=== PATIENT | male | born 1930 | race Caucasian/White ===

== ENCOUNTER 2019-08-09 16:10 | Inpatient (IN) | payer MEDICARE ==
[~2019-08-09] VITALS: Ht 172.7 cm; Wt 75.4 kg
[~2019-08-09 16:10] MED LIST: ADVAIR 100/501 EA INH; ASPIRIN81 M3; CALCIUM; CHOLECALCIFEROL; FISH OIL QD; METFORMIN HCL500 M3; Z.0.MULTIVITAMINS1 E; Z.1.DIOVAN HCT 3201 PO; [UNRECOGNIZED DRUG - OTHER] PO
--- OUTSIDE RECORDS SUMMARY | 2019-08-09 16:13 | XMS REPORT ---
Author Author [facility] Address Unknown Phone Unavailable Care Team Providers Care Soft Mud Molder Name Role Phone Unavailable Unavailable Problems This patient has no known problems. Allergies, Adverse Reactions, Alerts This patient has no known allergies or adverse reactions. Medications This patient has no known medications.
[2019-08-09 17:41] LABS: BASOPHILS % 0.2 % (0.0-1.0); EOSINOPHILS # (AUTO) 0.3 (0.0-0.4); EOSINOPHILS % 3.6 % (0.0-6.0); HEMATOCRIT 41.1 % (38.2-49.6); HEMOGLOBIN 13.3 g/dL (14.0-18.0); LYMPHOCYTES # (AUTO) 1.4 (1.0-3.2); LYMPHOCYTES % 16.1 % (18.0-39.1); MEAN CORPUSCULAR HEMOGLOBIN 31.3 pg (28-32); MEAN CORPUSCULAR HGB CONC 32.4 g/dL (31-35); MEAN CORPUSCULAR VOLUME 96.7 fL (81-99); MONOCYTES # (AUTO) 0.7 (0.2-0.8); MONOCYTES % 7.8 % (4.4-11.3); NEUTROPHILS % 71.8 % (38.7-80.0); PLATELET COUNT 208 x10e3/uL (140-360); RED BLOOD COUNT 4.25 x10e6/uL (4.3-5.7); RED CELL DISTRIBUTION WIDTH 13.2 % (11.7-14.4)
[2019-08-09 18:07] LABS: ALANINE AMINOTRANSFERASE 17 IU/L (0-55); ALBUMIN 3.1 g/dL (3.5-5.0); ALKALINE PHOSPHATASE 131 IU/L (40-150); ANION GAP 10.8 mmol/L (8-16); BLOOD UREA NITROGEN 13 mg/dL (7-26); BUN/CREATININE RATIO 13 (6-25); CALCIUM 9.2 mg/dL (8.4-10.2); CARBON DIOXIDE 30 mmol/L (22-29); CHLORIDE 100 mmol/L (98-107); CREATINE KINASE 31 IU/L (30-200); CREATININE, SERUM 0.98 mg/dL (0.72-1.25); EST GLOMERULAR FILTRATION RATE > 60 ML/MIN (60-); GLUCOSE 164 mg/dL (74-118); POTASSIUM 3.8 mmol/L (3.5-5.1); SODIUM 137 mmol/L (136-145)
[2019-08-09 18:25] LABS: INR 0.96; PARTIAL THROMBOPLASTIN TIME 26.2 seconds (23.8-35.5); PROTHROMBIN TIME 13.3 seconds (11.9-14.5)
--- NOTE | 2019-08-09 18:48 | Diagnostic Imaging Report ---
EXAMINATION: CHEST 2 VIEWS INDICATION: ^sob ^[id number] ^[id number] COMPARISON: 04/21/2012 FINDINGS: TUBES and LINES: None. LUNGS: New 3.5 cm mass in the left upper lung. Chronic appearing changes in the lungs. There is no evidence of pneumonia or pulmonary edema. PLEURA: No pleural effusion or pneumothorax. HEART AND MEDIASTINUM: The cardiomediastinal silhouette is unremarkable. BONES AND SOFT TISSUES: No acute osseous lesion. Soft tissues are unremarkable. UPPER ABDOMEN: No free air under the diaphragm. IMPRESSION: New 3.5 cm mass in the left upper lung. This is worrisome for malignancy. CT scan of the chest is recommended. Signed by: Dr. Pk Guzamn M.D. on 08/09/2019 6:44 PM
[2019-08-09 20:12] LABS: BILIRUBIN,URINE NEGATIVE (NEGATIVE); CLARITY,URINE CLEAR (CLEAR); COLOR,URINE YELLOW (YELLOW); KETONES,URINE NEGATIVE (NEGATIVE); LEUKOCYTE ESTERASE ,URINE NEGATIVE (NEGATIVE); NITRITE,URINE NEGATIVE (NEGATIVE); PROTEIN,URINE DIPSTICK NEGATIVE (NEGATIVE); URINE UROBILINOGEN 0.2 mg/dL (0.2 - 1)
[2019-08-09 20:36] LABS: BACTERIA,URINE RARE /HPF; EPITHELIAL CELLS,URINE RARE /LPF
[2019-08-09] MEDS ORDERED: TRIAZOLAM0.25 MG PO (20:41)
[2019-08-09] MEDS ORDERED: METFORMIN HCL500 MG PO (20:41)
[2019-08-09] MEDS ORDERED: FINASTERIDE5 MG PO (20:41)
[2019-08-09] MEDS ORDERED: FLOMAX0.4 MG PO (20:41)
[2019-08-09] MEDS ORDERED: LOSARTAN POTASS50 MG PO (20:41)
[2019-08-09] MEDS ORDERED: ONDANSETRON HCL INJ 2MG/ML 2ML 2 MG/ML VIAL IV PRN (21:00)
[2019-08-09] MEDS ORDERED: IPRATROPIUM BROMIDE 0.02% 2.5 ML NEB NEB PRN (21:00)
[2019-08-09] MEDS ORDERED: ALBUTEROL SULF 0.083% NEB SOLN 3 ML NEB NEB PRN (21:00)
[2019-08-09] MEDS ORDERED: FAMOTIDINE 20 MG/2 ML VIAL IV SCH (21:00)
--- NOTE | 2019-08-09 22:02 | Diagnostic Imaging Report ---
History:Recent cerebral hemorrhage Comparison studies: None Technique: Axial images were obtained from the skull base to the vertex. Coronal and sagittal images reconstructed from the axial data. Dose modulation, iterative reconstruction, and/or weight based adjustment of the mA/kV was utilized to reduce the radiation dose to as low as reasonably achievable. Intravenous contrast: None Findings: Scalp/skull: No abnormalities. Extra-axial spaces: No masses. No fluid collections. Brain sulci: Moderately prominent. Ventricles: Moderate compensatory dilatation. No hydrocephalus. Parenchyma: Subtle, ill-defined hypodensities in the supratentorial white matter are small vessel ischemic changes. Focal cortical encephalomalacic changes in the left superolateral cerebellum are the result of a nonspecific vascular insult which dates back to a report of a previous head CT on 07/27/2014 No masses, hemorrhage, acute or chronic additional cortical vascular insults. Sellar/suprasellar region: No abnormalities. Craniocervical junction: Patent foramen magnum. No Chiari one malformation. Incidental findings: Coarse atherosclerotic calcifications in the carotid siphons and intradural segments of the vertebral arteries. Impression: 1. No acute abnormalities. 2. Specifically, no acute intracranial hemorrhage. Chronic findings: * Moderate generalized volume loss. * Moderate supratentorial white matter small vessel ischemic changes. * Old focal cortical insult in the left superolateral cerebellum which dates back at least to 2013 * Notified of the study on 08/09/2019 at 2150 hours. Signed by: Dr. Chao Chiu M.D. on 08/09/2019 9:59 PM
[2019-08-09] MEDS: ENOXAPARIN SODIUM INJ 100 MG/ML SYR SC SCH (22:19)
[2019-08-09] MEDS: MORPHINE SULFATE 2 MG/ML SYR 1ML IV PRN (22:19)
[2019-08-09] MEDS ORDERED: DEXTROSE 50% SYRINGE 50 ML IV PRN (23:15)
--- NOTE | 2019-08-09 23:44 | NUR ---
Received report from ER nurse.
[2019-08-09 23:50] VITALS: BP 166/72
--- NOTE | 2019-08-09 23:56 | NUR ---
Patient arrived to floor via stretcher.
[2019-08-10] VITALS (8 sets, daily range): BP systolic 139–185; BP diastolic 62–81
[2019-08-10] MEDS ORDERED: SODIUM CHLORIDE 0.9% 250ML 250 ML ONE (05:54)
[2019-08-10 06:03] LABS: BASOPHILS % 0.3 % (0.0-1.0); EOSINOPHILS # (AUTO) 0.3 (0.0-0.4); EOSINOPHILS % 4.5 % (0.0-6.0); HEMATOCRIT 36.3 % (38.2-49.6); LYMPHOCYTES # (AUTO) 1.5 (1.0-3.2); LYMPHOCYTES % 21.6 % (18.0-39.1); MEAN CORPUSCULAR HEMOGLOBIN 31.6 pg (28-32); MEAN CORPUSCULAR HGB CONC 33.1 g/dL (31-35); MEAN CORPUSCULAR VOLUME 95.5 fL (81-99); MONOCYTES # (AUTO) 0.7 (0.2-0.8); MONOCYTES % 9.7 % (4.4-11.3); NEUTROPHILS # (AUTO) 4.4 (2.1-6.9); NEUTROPHILS % 63.5 % (38.7-80.0); PLATELET COUNT 164 x10e3/uL (140-360); RED CELL DISTRIBUTION WIDTH 13.2 % (11.7-14.4)
[2019-08-10 06:26] LABS: ALANINE AMINOTRANSFERASE 15 IU/L (0-55); ALBUMIN 2.6 g/dL (3.5-5.0); ALBUMIN/GLOBULIN RATIO 0.9 (0.8-2.0); ALKALINE PHOSPHATASE 115 IU/L (40-150); ANION GAP 10.5 mmol/L (8-16); BLOOD UREA NITROGEN 11 mg/dL (7-26); BUN/CREATININE RATIO 12 (6-25); CALCIUM 8.6 mg/dL (8.4-10.2); CARBON DIOXIDE 29 mmol/L (22-29); CHLORIDE 101 mmol/L (98-107); CHOL/HDL RATIO 4.9 (3.9-4.7); CHOLESTEROL 163 MD/DL (0-199); CREATININE, SERUM 0.92 mg/dL (0.72-1.25); EST GLOMERULAR FILTRATION RATE > 60 ML/MIN (60-); GLUCOSE 116 mg/dL (74-118); HDL CHOLESTEROL 33 MG/DL (40-60); LDL CHOLESTEROL 112 MG/DL (60-130); POTASSIUM 3.5 mmol/L (3.5-5.1); SODIUM 137 mmol/L (136-145); TRIGLYCERIDES 90 MG/DL (0-149)
[2019-08-10 06:32] LABS: CREATINE KINASE MB 1.2 ng/mL (0-5.0)
--- NOTE | 2019-08-10 07:06 | NUR ---
RECEIVED PATIENT RESTING IN BED. NO ACUTE DISTRESS NOTED, RESPIRATIONS EVEN AND UNLABORED. DENIES PAIN OR DISCOMFORT AT THIS TIME. CALL LIGHT WITHIN REACH. BED IN THE LOWEST POSITION.
[2019-08-10] MEDS ORDERED: ACETAMINOPHEN 325 MG TAB PO PRN (08:15)
[2019-08-10] MEDS ORDERED: ARTIFICIAL TEARS (OPTH) 15 ML BTL OP PRN (08:30)
[2019-08-10] MEDS ORDERED: ONDANSETRON HCL 4 MG ORAL DISINTEGRATING TAB PO PRN (08:30)
[2019-08-10] MEDS: INSULIN LISPRO 100 UNIT/1 ML 3ML VIAL SQ SCH ×4 (09:00→21:00)
[2019-08-10] MEDS ORDERED: LOSARTAN POTASSIUM 100 MG TAB PO SCH (09:00)
[2019-08-10] MEDS: PANTOPRAZOLE SOD 40 MG TABEC PO SCH (09:34)
[2019-08-10] MEDS: ENOXAPARIN SODIUM INJ 100 MG/ML SYR SC SCH ×2 (09:34→22:15)
[2019-08-10] MEDS: ALBUTEROL/IPRATROPIUM 3 ML NEB NEB SCH ×2 (11:45→19:25)
--- NOTE | 2019-08-10 11:45 | NUR ---
I performed the bedside PFT that was ordered by Dr. Burrell.
--- NOTE | 2019-08-10 14:11 | History and Physical ---
CHIEF COMPLAINT: The patient was found to have bilateral PE on outpatient CAT scan of chest done 2 days back. HISTORY OF PRESENT ILLNESS: An 89-year-old pleasant white male with past medical history of multiple medical problems, was admitted at [facility] last evening with above complaints. Apparently, the patient had altered mental status, confusion about 3 weeks back and the patient was taken to [facility] where the patient was found to have UTI sepsis, and the patient was treated with IV antibiotics, sent home. The patient had a fall at home and the patient went back to [facility] where chest x-ray and CAT scan of chest was done, which showed left upper lobe lung mass, likely malignancy. The patient was seen in my office last week for followup from the hospital. The patient was found to have some shortness of breath and the patient had an outpatient CAT scan of chest done with contrast at this time at the hospital, previously was done without contrast, which reconfirmed left upper lobe of lung about 3.5 cm mass, likely malignancy, but also showed bilateral lower lobe pulmonary embolisms. Hence, the patient was sent to ER. In the emergency room, the patient was seen by emergency room doctor and was admitted for further care and treatment. At present, the patient lying comfortably in bed. No apparent distress. No chest pain. No shortness of breath at rest. No nausea, vomiting, or diarrhea. No abdominal pain. No loss of consciousness. No palpitations. No headaches. No hematemesis. No melena. No hematuria or dysuria. No fever. No cough. No witnessed seizures. PAST MEDICAL HISTORY: 1. COPD. 2. CAD, status post PTCA x3 stents. 3. Abdominal aortic aneurysm, status post surgery. 4. Macular degeneration. 5. Depression. 6. Aortic stenosis. 7. Diabetes mellitus type 2. 8. Severe BPH. PAST SURGICAL HISTORY: Abdominal aortic aneurysm stenting surgery. SOCIAL HISTORY: Ex-smoker. No alcohol. No illicit drug use. . Lives with family. ALLERGIES: CIPRO. REVIEW OF SYSTEMS: As per HPI. FAMILY HISTORY: Noncontributory. PHYSICAL EXAMINATION: GENERAL: The patient is alert, awake, and oriented x3, in no apparent distress, lying in bed. VITAL SIGNS: Temperature is 98, pulse is 88 per minute, respiratory rate is 18 per minute, blood pressure is 156/72, and saturation is 96% on room air. SKIN: No cyanosis. No icterus. No pallor. HEENT: Normocephalic, atraumatic. PERRLA plus. NECK: Supple. No JVD. No lymphadenopathy. LUNGS: Air entry bilaterally decreased. HEART: S1 and S2 present. No murmur, gallop, or rub. ABDOMEN: Soft, nontender. Bowel sounds plus. DBA DEVELOPER: Alert, awake, and oriented x3. Moves extremities. No focal deficit. EXTREMITIES: No cyanosis. No clubbing. No edema. Peripheral pulses palpable. No calf pain. LABORATORY DATA: White count 6.9, hemoglobin 12, hematocrit 36.3, platelet 164. Sodium 137, potassium 3.5, chloride 101, bicarb 29, BUN 11, and creatinine 0.9. LFTs noted. INR was 0.96, PTT 26.2. Urine negative. CT brain shows no acute abnormality. No acute intracranial hemorrhage. Moderate generalized volume loss. Moderate supratentorial white matter small vessel ischemic changes. Old focal cortical installed in left superolateral cerebellum, which dates back at least to 2013. Chest x-ray, 3.5 cm mass in left upper lung. CAT scan of the chest with contrast done on August 06, 2019, shows: 1. Left upper lobe spiculated mass suggestive of malignancy. 2. Pulmonary emboli in the lower lobes. 3. Descending thoracic aortic aneurysm, 5 x 5.1 x 4.7 cm. ASSESSMENT: 1. Bilateral pulmonary embolism. 2. Left lung mass, likely malignancy. 3. Descending thoracic aorta aneurysm. 4. History of chronic obstructive pulmonary disease. 5. Coronary artery disease. 6. Hypertension. 7. Diabetes mellitus. 8. Benign prostatic hypertrophy. PLAN: Admit the patient to [facility]. The patient on weight based Lovenox therapeutic dose. Pulmonary consultation, Dr. Burrell. Cardiology consultation Dr. Tripathi. Oxy and neb treatments as needed. Continue home medications. Further care and treatment as per clinical course of patient in the hospital. Discussed with the patient at length. Prognosis and condition guarded. Robb Diaz MD SSB/MODL /[id number]
--- NOTE | 2019-08-10 16:06 | Consultation ---
DATE OF CONSULTATION: Pulmonary Consultation Patient of Dr. Diaz. HISTORY OF PRESENT ILLNESS: Charming, but unfortunate 89-year-old gentleman, somewhat rambling historian, admitted with progressive shortness of breath, diagnosed with pulmonary emboli on CT scan, which he says was a followup to a lung mass, which was noted previously, also has a history of fall with progressive dyspnea on exertion, history of old lacunar infarct. He has been progressively short of breath for 1 week, able to walk with a walker approximately 100 feet. PAST MEDICAL HISTORY: He has had a history of BPH, diabetes, hypertension, skin cancer, hernia repair. ALLERGIES: ALLERGIC TO CIPRO, OFLOXACIN. MEDICATIONS: Include: 1. Finasteride. 2. Metformin. 3. Flomax. 4. Losartan. 5. Triazolam. PAST SURGICAL HISTORY: He has had coronary disease with multiple stents, aortic aneurysm with stent, circumcision, T and A. SOCIAL HISTORY: Smoked in the past. Quit 9 years ago. Smoked for over 60 years. Drank in the past. Worked in [employer] Born in [place], [place]. FAMILY HISTORY: Positive for cancer. He has had skin cancers removed from his nose. PHYSICAL EXAMINATION: GENERAL: He is in no acute distress at rest, eating his breakfast, speaking with his daughter. HEENT: Head, normocephalic. Scarred nose where skin cancer was removed. He says this was not a melanoma. LUNGS: Diminished breath sounds, but clear. HEART: Regular rhythm. ABDOMEN: Nontender. EXTREMITIES: Nonedematous. IMPRESSION: Pulmonary embolism, associated lung nodule. Old films are currently unavailable, which were taken at [facility], but pulmonary emboli are described bilaterally. Stable nodules, but also a spiculated mass in the left upper lobe measuring 3.4 x 3.2 cm. Continue anticoagulation as per Dr. Diaz. The patient will require a biopsy prior to discharge if possible. He is agreeable to this. MD ISAEL Shah/MODL /[id number]
[2019-08-10 18:16] LABS: CREATINE KINASE MB 1.6 ng/mL (0-5.0)
--- NOTE | 2019-08-10 19:34 | NUR ---
Report given to oncoming nurse. Walking rounds done. Patient is resting in bed. No acute distress noted. Call light within reach. Bed in the lowest position.
--- NOTE | 2019-08-10 20:36 | NUR ---
RECEIVED PATIENT IN BED.AOX3 RESPIRATIONS EVEN AND UNLABORED. DENIES PAIN OR DISCOMFORT AT THIS TIME. NOTED BILATERAL ARMS WITH OPEN WOUND DUE TO THE FALL AT HOME . BED IN THE LOWEST POSITION
[2019-08-10] MEDS: MORPHINE SULFATE 2 MG/ML SYR 1ML IV PRN (21:06)
--- NOTE | 2019-08-10 22:44 | NUR ---
Cardiology Consult Dictation# [id number]
[2019-08-11] VITALS (7 sets, daily range): BP systolic 128–142; BP diastolic 58–89
[2019-08-11] MEDS: ALBUTEROL/IPRATROPIUM 3 ML NEB NEB SCH ×3 (01:10→14:30)
--- NOTE | 2019-08-11 04:19 | Consultation ---
DATE OF CONSULTATION: 08/10/2019 Cardiology Consultation REQUESTING PHYSICIAN: Williams iDaz MD REASON FOR CONSULTATION: Dyspnea. HISTORY OF PRESENT ILLNESS: This is an 89-year-old male with history of coronary artery disease, status post prior PCI, abdominal aortic aneurysm, status post repair, aortic root, hyperlipidemia, diabetes mellitus, and COPD, who was sent to the emergency room after CT of the chest revealed pulmonary emboli. Of note, patient had recent admission at [facility], where he was found to have a left upper lung mass suspected to be malignancy on CT of the chest. Upon questioning, patient reports chronic shortness of breath and dyspnea on exertion. Denies any chest pain or palpitations. He denies any edema, orthopnea, or PND. REVIEW OF SYSTEMS: Negative except as per HPI. PAST MEDICAL HISTORY: 1. Coronary artery disease, status post stent x3. 2. Abdominal aortic aneurysm, status post surgery. 3. Aortic stenosis. 4. Hyperlipidemia. 5. Diabetes mellitus. 6. COPD. PAST SURGICAL HISTORY: 1. Abdominal aortic aneurysm, status post repair. 2. Tonsillectomy. SOCIAL HISTORY: He previously smoked three packs a day for 60 more years. Does endorse prior alcohol. No illicit drugs. FAMILY HISTORY: Pertinent for father with heart disease, although details are not available. ALLERGIES: PLEASE SEE EMR. MEDICATIONS: Please see medication list. PHYSICAL EXAMINATION: VITAL SIGNS: Temperature 95.5 degrees, pulse 95, respiratory rate 16, blood pressure 185/81, oxygen saturation 95% on room air. GENERAL: Elderly man, in no acute distress. Awake, alert, well developed, well nourished. HEENT: Normocephalic, atraumatic. Pupils equal. No scleral icterus. NECK: Supple. No thyromegaly or cervical lymphadenopathy. No carotid bruits. LUNGS: Clear to auscultation bilaterally. No wheeze or crackles. CARDIOVASCULAR: Normal rate, regular rhythm. No murmur. Normal S1, S2. ABDOMEN: Soft, nontender. EXTREMITIES: No edema. NEUROLOGIC: Nonfocal. LABORATORY DATA: WBC 6.91, hemoglobin 12, hematocrit 36.3, platelets 164. Sodium 137, potassium 3.5, chloride 101, bicarb 29, BUN 11, creatinine 0.9. Troponin 0.009 to 0.006. EKG, normal sinus rhythm. Nonspecific ST and T-wave abnormality. IMPRESSION: 1. Bilateral pulmonary embolism, left upper lobe spiculated mass, likely malignancy. 2. Descending thoracic aortic aneurysm 5.5 x 5.1 x 4.7 cm. 3. Abdominal aortic cancer, status post repair. 4. Coronary artery disease, status post PCI x3. 5. Aortic stenosis. 6. Hypertension. 7. Hyperlipidemia. 8. Diabetes mellitus. 9. History of chronic obstructive pulmonary disease. RECOMMENDATIONS: Continue Lovenox for now. If no procedures are planned, we would recommend transition to Eliquis versus or Xarelto on discharge for anticoagulation. For patient's aortic aneurysm, his blood pressure is above goal. Increase losartan to 50 b.i.d. Add beta blockade. He will need surveillance CT of the chest in 6 months. Evaluate echocardiogram to assess RV function. Monitor patient closely on telemetry. Start patient on statin as cholesterol is not sufficiently well controlled. If no procedures are planned, recommend addition of aspirin. Defer to Pulmonary regarding decision for biopsy of the pulmonary mass. Thank you for this consult. We will continue to follow. Nasrin Bradshaw MD ABS/MODL /[id number]
--- NOTE | 2019-08-11 06:29 | NUR ---
PT RESTED DURING THE NIGHT .DENIES PAIN .CALL LIGHT WITH IN REACH .CONTINUE TO MONITOR
[2019-08-11] MEDS: BUDESONIDE/FORMOTEROL 160/4.5MCG INHALER INH SCH (07:15)
--- NOTE | 2019-08-11 07:25 | NUR ---
BEDSIDE REPORT GIVEN TO THE ONCOMING NURSE
[2019-08-11] MEDS ORDERED: PANTOPRAZOLE SOD 40 MG TABEC PO SCH (07:30)
[2019-08-11] MEDS: INSULIN LISPRO 100 UNIT/1 ML 3ML VIAL SQ SCH ×4 (07:30→21:03)
--- NOTE | 2019-08-11 07:30 | NUR ---
Pt received in room in bed. Aox3 and able to verbalize needs. Denies any pain at this time. Breaths are even and unlabored on room air.
[2019-08-11] MEDS: PANTOPRAZOLE SOD 40 MG TABEC PO SCH (08:54)
[2019-08-11] MEDS: CARVEDILOL 12.5 MG TAB PO SCH ×2 (08:55→20:30)
[2019-08-11] MEDS: LOSARTAN POTASSIUM 100 MG TAB PO SCH (08:56)
[2019-08-11] MEDS: ENOXAPARIN SODIUM INJ 100 MG/ML SYR SC SCH ×2 (08:59→22:15)
--- NOTE | 2019-08-11 14:09 | NUR ---
WOUND CARE INITIAL CONSULTATION. 89 YEAR OLD MALE ADMITTED TO [facility] WITH DX OF COPD, LUNG CANCER, PULMONARY EMBOLI. HEAD TO TOE SKIN ASSESSMENT PERFORMED TODAY. PT PRESENTS TODAY WITH HEALING ABRASIONS TO BILATERAL ELBOWS, AND SCALP POST FALL AT HOME ON DAY. THERE ARE NO OTHER AREAS OF CONCERN NOTED AT THIS TIME. NO S/S INFECTION PRESENT. LABS: WBC: 6.91 POC GLUCOSE: 109 ALB: 2.8 URINE CX PENDING RECOMMENDATIONS: NURSING TO MONITOR HEALING ABRASIONS DAILY. TURN PT EVERY TWO HOURS AND PRN. PROVIDE PT WITH BILATERAL HEEL PROTECTORS AND PILLOW SUSPENSIONS. CONTINUE WITH ALTERNATING LOW AIR LOSS MATTRESS. THANKS FOR THIS CONSULTATION. Addendum: 08/11/19 at 1420 by Bia Cox RN Amended: Links added.
--- NOTE | 2019-08-11 15:09 | NUR ---
Spoke with radiology related to lung biopsy and stated they needed imaging results from [facility]. Refaxed request for information.
--- NOTE | 2019-08-11 19:05 | NUR ---
Completed BS report with morning nurse. Pt alert to name. Lying in bed HOB 45 degrees. Denies pain at this time. Call de leon within reach. Bed alarm on. Will continue to monitor.
--- NOTE | 2019-08-11 19:10 | NUR ---
Completed BS report with morning nurse. Pt alert to name. Lying in bed HOB 45 degrees. Denies pain at this time. Call de leon within reach. Will continue to monitor.
[2019-08-11] MEDS ORDERED: TRIAZOLAM 0.25 MG PO PRN (21:00)
[2019-08-11] MEDS ORDERED: [UNRECOGNIZED DRUG - OTHER] PO PRN (21:00)
[2019-08-11] MEDS: ATORVASTATIN 20 MG TAB PO SCH (21:03)
[2019-08-12] VITALS (12 sets, daily range): BP systolic 98–179; BP diastolic 72–86
--- NOTE | 2019-08-12 01:14 | Progress Note ---
DATE: 08/11/2019 Cardiology Progress Note SUBJECTIVE: The patient denies chest pain or shortness of breath. OBJECTIVE: VITAL SIGNS: Temperature 97.3 degrees, pulse 77, respiratory rate 18, blood pressure 131/62, oxygen saturation 95% on room air. GENERAL: Awake and alert, in no acute distress. LUNGS: Clear to auscultation bilaterally. No wheezes or crackles. CARDIOVASCULAR: Normal rate and regular rhythm. No murmur. Normal S1 and S2. ABDOMEN: Soft, nontender. EXTREMITIES: No edema. CARDIAC MEDICATIONS: Atorvastatin 40 mg p.o. at bedtime, carvedilol 6.25 mg p.o. b.i.d., enoxaparin 80 mg subcu q.12 hours, losartan 100 mg p.o. daily. LABORATORY DATA: None today. TELEMETRY: Normal sinus rhythm. Carotid Doppler with elevated velocities in right carotid bulb suggestive of 50% to 69% focal stenosis, elevated velocities in the left carotid bulb suggestive of less than 50% focal stenosis, elevated velocities in bilateral external carotid arteries. Vertebral arteries demonstrate antegrade flow. IMPRESSION: 1. Bilateral pulmonary embolism. 2. Left upper lobe spiculated mass, likely malignancy. 3. Descending thoracic aortic aneurysm, 5.1 x 5.5 x 4.7 cm. 4. Abdominal aortic aneurysm, status post repair. 5. Coronary artery disease, status post PCI x3. 6. Aortic stenosis. 7. Hypertension. 8. Hyperlipidemia. 9. Diabetes mellitus. 10. History of cerebrovascular accident. RECOMMENDATIONS: Continue Lovenox for now. The patient is pending lung biopsy. Once lung biopsy has been completed and hemostasis is acceptable from a procedure standpoint, we recommend transition to [facility] for his Xarelto for anticoagulation. With regard to the patient's aortic aneurysm, the patient's blood pressure is not adequately controlled. We will further increase carvedilol. He will need surveillance of the aortic aneurysm in 6 months. Monitor the patient closely on telemetry. Continue statin. Thank you for this consult. We will continue to follow. Nasrin Bradshaw MD ABS/MODL /[id number]
[2019-08-12 06:10] LABS: BASOPHILS % 0.4 % (0.0-1.0); EOSINOPHILS # (AUTO) 0.4 (0.0-0.4); EOSINOPHILS % 3.5 % (0.0-6.0); HEMATOCRIT 40.1 % (38.2-49.6); LYMPHOCYTES # (AUTO) 1.4 (1.0-3.2); LYMPHOCYTES % 14.1 % (18.0-39.1); MEAN CORPUSCULAR HEMOGLOBIN 31.4 pg (28-32); MEAN CORPUSCULAR HGB CONC 32.4 g/dL (31-35); MEAN CORPUSCULAR VOLUME 96.9 fL (81-99); MONOCYTES # (AUTO) 0.8 (0.2-0.8); NEUTROPHILS # (AUTO) 7.6 (2.1-6.9); NEUTROPHILS % 73.7 % (38.7-80.0); PLATELET COUNT 181 x10e3/uL (140-360); RED BLOOD COUNT 4.14 x10e6/uL (4.3-5.7); RED CELL DISTRIBUTION WIDTH 13.3 % (11.7-14.4)
[2019-08-12 06:46] LABS: ALANINE AMINOTRANSFERASE 14 IU/L (0-55); ALBUMIN 2.7 g/dL (3.5-5.0); ALBUMIN/GLOBULIN RATIO 0.9 (0.8-2.0); ALKALINE PHOSPHATASE 136 IU/L (40-150); ANION GAP 12.6 mmol/L (8-16); BLOOD UREA NITROGEN 10 mg/dL (7-26); BUN/CREATININE RATIO 12 (6-25); CARBON DIOXIDE 26 mmol/L (22-29); CHLORIDE 103 mmol/L (98-107); CREATININE, SERUM 0.86 mg/dL (0.72-1.25); EST GLOMERULAR FILTRATION RATE > 60 ML/MIN (60-); GLUCOSE 116 mg/dL (74-118); POTASSIUM 3.6 mmol/L (3.5-5.1); SODIUM 138 mmol/L (136-145)
--- NOTE | 2019-08-12 06:46 | NUR ---
Patient resting quietly in bed with eyes closed. HOB 75 degrees. RR even and unlabored, 20. Call de leon within reach.
[2019-08-12] MEDS: ALBUTEROL/IPRATROPIUM 3 ML NEB NEB SCH ×2 (07:20→13:55)
[2019-08-12] MEDS: BUDESONIDE/FORMOTEROL 160/4.5MCG INHALER INH SCH (07:20)
[2019-08-12] MEDS: INSULIN LISPRO 100 UNIT/1 ML 3ML VIAL SQ SCH ×4 (07:30→21:00)
[2019-08-12] MEDS: PANTOPRAZOLE SOD 40 MG TABEC PO SCH (09:10)
[2019-08-12] MEDS: CARVEDILOL 12.5 MG TAB PO SCH ×2 (09:10→17:50)
[2019-08-12] MEDS: LOSARTAN POTASSIUM 100 MG TAB PO SCH (09:11)
[2019-08-12] MEDS: ENOXAPARIN SODIUM INJ 100 MG/ML SYR SC SCH ×2 (09:11→22:15)
--- NOTE | 2019-08-12 12:06 | Diagnostic Imaging Report ---
CT of the chest, with contrast, 08/12/2019. History: Lung mass, history of pulmonary embolism. Comparison: Chest x-ray 08/09/2019. Technique: Multidetector CT scanning of the chest was performed from the level of the apices to the upper abdomen after intravenous administration of contrast. Coronal and sagittal multiplanar reformations were obtained. RADIATION DOSE: Total DLP: 480 mGy*cm Dose modulation, iterative reconstruction, and/or weight based adjustment of the mA/kV was utilized to reduce the radiation dose to as low as reasonably achievable. Discussion: Chest: The atria, ventricles, ascending thoracic aorta, and main pulmonary artery are normal in size. There is calcification of the coronary arteries. A small hypodense filling defect is seen within a left lower lobe pulmonary artery branch. Remaining pulmonary artery branches opacify normally. The thyroid is unremarkable. Scattered subcentimeter nonspecific advanced degenerative changes are present throughout the thoracic spine. Mediastinal nodes are present.. A 3.2 x 3.3 cm spiculated mass is present in the medial aspect of the left upper lobe. There is adjacent pleural thickening. There is mild bilateral centrilobular emphysema. Linear opacities are present in the lingula, right middle lobe, and both lower lobes. A calcified granuloma is also noted in the left upper lobe. There is no evidence of consolidation or effusion. Limited evaluation of the upper abdomen shows normal adrenal glands. There is aneurysmal dilatation of the distal descending thoracic/proximal abdominal aorta beginning just above the diaphragmatic hiatus, measuring up to 5.1 cm in diameter, with posterior mural thrombus. The abdominal aorta at the level of the celiac trunk measures 3.0 cm. Remaining abdominal aorta is not visible. Bones and soft tissues: No acute abnormality. IMPRESSION: 1. Left upper lobe mass consistent with neoplasm. 2. Mild emphysematous disease and scattered bilateral atelectasis are noted. 3. Small left lower lobe pulmonary embolism is consistent with given history. 4. 5.1 cm distal descending thoracic/proximal abdominal aortic aneurysm. Recommend follow-up exam every 6 months and vascular surgery consultation. Signed by: Lv Wood on 08/12/2019 12:03 PM
[2019-08-12] MEDS ORDERED: IOPAMIDOL 370 MG/ML 200 ML INFUS..BTL INJ ONE (14:26)
[2019-08-12] MEDS ORDERED: SODIUM CHLORIDE 0.9% 50ML 50 ML ONE (14:26)
[2019-08-12] MEDS ORDERED: FENTANYL CITRATE/PF 100MCG/2 ML INJ ONE (14:48)
[2019-08-12] MEDS ORDERED: MIDAZOLAM HCL 2 MG/2 ML VIAL ONE (14:48)
[2019-08-12] MEDS ORDERED: LIDOCAINE HCL 1% LOCAL INJ 20 ML VIAL ONE (15:17)
[2019-08-12] MEDS ORDERED: SODIUM CHLORIDE 0.9% 250ML 250 ML ONE (15:55)
--- NOTE | 2019-08-12 17:00 | Diagnostic Imaging Report ---
CT guided lung biopsy. History: Left upper lobe mass, emphysema, history of smoking. Contrast: None. Medication: 5 mL of 1% lidocaine. Sedation: None. EBL: Less than 1 cc. Specimens: Given to pathology in attendance. RADIATION DOSE: Total DLP: 2128 mGy*cm Dose modulation, iterative reconstruction, and/or weight based adjustment of the mA/kV was utilized to reduce the radiation dose to as low as reasonably achievable. Technique: After informed consent was obtained, the patient's chest was prepped and draped in a sterile fashion. The skin was anesthetized with 1% lidocaine without epinephrine and a dermatotomy was made. Using CT guidance, the 3.3 cm spiculated medial left upper lobe was visualized and a guiding needle was advanced through the chest wall into lung and to the edge of the lesion. A 20-gauge 15 cm core biopsy needle was advanced coaxially into the mass for 7 samples, with touch prep and confirmed adequacy check by pathology. The guiding needle was removed as a blood patch could not be performed upon exit due to poor IV access. Post by CT scan was performed demonstrating moderate anterior left pneumothorax. Using CT guidance, an 8 Spanish pleural drainage catheter was advanced into the anterior pleural space. Approximately 750 mL of air was aspirated using syringe and a three-way stopcock, with significant reduction in the size of the pneumothorax. The catheter was secured to the skin with suture and attached to wall suction at 20 cm. The patient tolerated procedure well with stable vital signs at termination of the procedure. IMPRESSION: 1. Successful CT guided left upper lobe lung biopsy. 2. Left pneumothorax successfully treated with small caliber chest tube placement. Signed by: Lv Wood on 08/12/2019 4:56 PM
--- NOTE | 2019-08-12 17:00 | NUR ---
Received pt at 1630 from radiology. Pt is aox4 and able to verbalize needs. Pt was received with chest tube to left chest wall with wall suction -20cm. Breaths are even and unlabored on room air sat is 98-100%. Denies any pain at this time. Pt family notified.
--- NOTE | 2019-08-12 17:46 | Diagnostic Imaging Report ---
EXAM: CHEST XRAY POST PROCEDURE DATE: 08/12/2019 5:20 PM INDICATION: ^post lung bx with chest tube placement ^Y COMPARISON: Chest CT, 08/12/2019 FINDINGS: Lines and tubes: Left chest tube extends toward the upper chest area. Heart size normal. There is residual left pneumothorax with an air gap of approximately 1.2 cm near the apex. Poorly defined 3.7 cm left upper lobe mass as seen on previous CT. The right lung is expanded and clear. Upper abdomen unremarkable. No acute bony abnormality. IMPRESSION: Left chest tube is present. Residual small pneumothorax in the left apex is noted. Recommend continued clinical and radiographic follow-up. Signed by: Dr. Boubacar Greenfield M.D. on 08/12/2019 5:43 PM
--- NOTE | 2019-08-12 19:30 | NUR ---
RECEIVED PATIENT IN BED.AOX3 RESPIRATIONS EVEN AND UNLABORED. DENIES PAIN OR DISCOMFORT AT THIS TIME. PT HAS LEFT CHEST TUBE SUCTIONING AIR .TELE 28 SR .RT AC 20 G S/L .RT ELBOW SCABS BILATERALLY .CALL LIGHT WITH IN REACH .CONTINUE TO MONITOR
[2019-08-12] MEDS: ATORVASTATIN 20 MG TAB PO SCH (21:00)
[2019-08-13] VITALS (8 sets, daily range): BP systolic 123–183; BP diastolic 59–73
[2019-08-13] MEDS: ALBUTEROL/IPRATROPIUM 3 ML NEB NEB SCH ×4 (00:05→19:35)
--- NOTE | 2019-08-13 02:46 | Progress Note ---
DATE: 08/12/2019 Cardiology progress note SUBJECTIVE: The patient denies chest pain or shortness of breath. He had a biopsy of his lung mass done today. OBJECTIVE: VITAL SIGNS: Reviewed. GENERAL: Awake, alert, no distress elderly man. LUNGS: Clear to auscultation bilaterally. No wheezes or crackles. CARDIOVASCULAR: Normal rate, regular rhythm. No murmur. Normal S1, S2. ABDOMEN: Soft and nontender. EXTREMITIES: No edema. TELEMETRY: Normal sinus rhythm. IMPRESSION: 1. Bilateral pulmonary embolism. 2. Lung mass. RECOMMENDATIONS: 1. Resume Lovenox once hemostasis is achieved from a biopsy standpoint, can be transitioned to Eliquis in preparation for discharge. Followup on biopsy results. 2. CTA of the neck to evaluate the patient's carotid artery disease. Thank you for this consult. We will continue to follow. Nasrin Bradshaw MD ABS/MODL /[id number]
[2019-08-13] MEDS: BUDESONIDE/FORMOTEROL 160/4.5MCG INHALER INH SCH ×3 (06:59→19:35)
--- NOTE | 2019-08-13 07:02 | NUR ---
RECEIVED PATIENT RESTING IN BED. NO ACUTE DISTRESS NOTED. DENIES PAIN OR DISCOMFORT AT THIS TIME. CALL LIGHT WITHIN REACH. BED IN THE LOWEST POSITION.
[2019-08-13] MEDS: INSULIN LISPRO 100 UNIT/1 ML 3ML VIAL SQ SCH ×4 (07:30→21:00)
--- NOTE | 2019-08-13 07:32 | NUR ---
BEDSIDE REPORT GIVEN TO THE ONCOMING NURS
[2019-08-13] MEDS ORDERED: APIXABAN 5 MG TABLET PO SCH (09:00)
[2019-08-13] MEDS: PANTOPRAZOLE SOD 40 MG TABEC PO SCH (09:12)
[2019-08-13] MEDS: CARVEDILOL 12.5 MG TAB PO SCH ×2 (09:13→16:29)
[2019-08-13] MEDS: LOSARTAN POTASSIUM 100 MG TAB PO SCH (09:13)
--- NOTE | 2019-08-13 10:30 | Diagnostic Imaging Report ---
Chest, portable AP view History: Follow-up for pneumothorax Comparison: 08/12/2019 IMPRESSION: There is a residual left pneumothorax which is grossly unchanged from prior examination. Smallbore chest tube remains in place. There is been development of subcutaneous disease along the left chest wall. Reconstruction of the 0.7 cm left upper lobe mass. The right lung is grossly clear. Signed by: Jared Mcleod MD on 08/13/2019 10:27 AM
[2019-08-13] MEDS ORDERED: APIXABAN 5 MG TABLET PO ONE (11:40)
[2019-08-13] MEDS: APIXABAN 5 MG TABLET PO SCH (16:29)
--- NOTE | 2019-08-13 20:45 | NUR ---
PATIENT DISPLAYED SIGNS OF CONFUSION AND HAS GOTTEN OUT OF BED AND REMOVED TELEMONITOR AND GOWN AT LEAST 4 TIMES IN 30 MINUTES. THERE IS CONCERN FOR CHEST TUBE PLACEMENT, SLIGHT BLEEDING NOTED. PATIENT REFUSED ORAL MEDICATION AND SPIT THE MEDICATION AT MYSELF AND THE TECH. HE IS IRRITATED AND SHOWS A BIT OF AGGRESSION AND CONTINUES TO TRY TO GET OUT OF BED. CONTINUING TO MONITOR. Addendum: 08/13/19 at 0029 by Chip Rivas RN PATIENT'S DAUGHTER WAS ALSO CALLED TO UPDATE HER ON PATIENT'S CONDITION.
[2019-08-13] MEDS: ATORVASTATIN 20 MG TAB PO SCH (21:00)
[2019-08-13] MEDS ORDERED: LORAZEPAM INJ 2 MG/ML VIAL IV ONE (21:00)
--- NOTE | 2019-08-13 21:00 | NUR ---
SPOKE WITH DR. VIRGEN REGARDING PATIENT'S CONDITION AND ORDERS WERE PUT IN FOR LAB IN MORNING. WILL CONTINUE TO MONITOR.
--- NOTE | 2019-08-13 22:00 | NUR ---
PATIENT WAS IN PROCESS TO TRANSFER TO ROOM 284 WHICH IS CLOSER TO NURSES STATION AND UPON ARRIVAL HE MANUALLY PULLED OUT HIS CHEST TUBE. MINOR BLEEDING WAS NOTED AND NO RESPIRATORY DISTRESS DISPLAYED. PRESSURE WAS PUT ON SITE AND RAPID RESPONSE WAS CALLED. PATIENT WAS STILL COMBATIVE AND TRIED TO GET OUT OF BED. CONTINUING TO MONITOR SITUATION.
--- NOTE | 2019-08-13 22:40 | NUR ---
PATIENT WAS ORDERED TO TRANSFER TO ICU.
--- NOTE | 2019-08-13 22:41 | Progress Note ---
DATE: 08/13/2019 Cardiology Progress Note SUBJECTIVE: The patient denies chest pain or shortness of breath. OBJECTIVE: VITAL SIGNS: Temperature 97 degrees, pulse 86, respiratory rate 18, blood pressure 136/62, oxygen saturation 96% on room air. GENERAL: Awake, alert, no acute distress. LUNGS: Clear to auscultation bilaterally. No wheezes or crackles. CARDIOVASCULAR: Normal rate. Regular rhythm. No murmur. Normal S1, S2. ABDOMEN: Soft, nontender. EXTREMITIES: No edema. Chest tube is present on the left chest. CARDIAC MEDICATIONS: Apixaban 10 mg p.o. b.i.d., carvedilol 25 mg p.o. b.i.d., losartan 100 mg p.o. daily, atorvastatin 40 mg p.o. at bedtime. LABORATORY DATA: None today. TELEMETRY: Normal sinus rhythm. IMAGING DATA: Chest x-ray, residual left pneumothorax, which is grossly unchanged from prior examination. Small bore chest tube remains in place. There has been development of subcutaneous disease along the left chest wall. IMPRESSION: 1. Bilateral pulmonary embolism. 2. Left upper lobe spiculated mass, likely malignancy. 3. Ascending thoracic aortic aneurysm, 5.1 x 5.5 x 4.7 cm. 4. Abdominal aortic aneurysm status post repair. 5. Coronary artery disease status post PCI x3. 6. Aortic stenosis. 7. Carotid artery disease. 8. Hypertension. 9. Hyperlipidemia. 10. Diabetes mellitus. 11. History of cerebrovascular accident. RECOMMENDATIONS: Continue apixaban 10 mg p.o. b.i.d. for 1 week with transition to 5 mg p.o. b.i.d. thereafter. The patient's blood pressure is not adequately controlled. We will add nifedipine. CTA of the neck was ordered to evaluate his carotid artery disease. However, given his current pneumothorax, this will be held until chest tube is removed and pneumothorax resolves. Continue current cardiac medications for now. Monitor the patient closely on telemetry. He will need surveillance CT of his aortic aneurysm in 6 months. Thank you for this consult. We will continue to follow. Nasrin Bradshaw MD ABS/MODL /[id number]
--- NOTE | 2019-08-13 23:17 | Diagnostic Imaging Report ---
a Examination: Single AP view of the chest. COMPARISON: Portable chest 08/13/2019 INDICATION: Pulled out chest tube IMPRESSION: 1. Lines and Tubes: Previously visualized left pleural catheter has been removed. 2. Lungs are well-inflated. Interval decrease in size of left apical pneumothorax. No consolidation. 3. Cardiomediastinal silhouette is normal. Pulmonary vasculature is normal. 4. No acute bony abnormalities. Extensive subcutaneous air in the left hemithorax. 5. Preliminary report provided by Dr. Du at 10:47 pm Signed by: Dr. Roland Du M.D. on 08/13/2019 11:17 PM
--- NOTE | 2019-08-13 23:30 | NUR ---
Patient arrived on unit via stretcher, escorted by Arvind LOCO and merary. No acute signs of distress noted. Patient belongings placed in room.
--- NOTE | 2019-08-13 23:32 | NUR ---
PATIENT TRANSFERRED TO ICU SAFELY, NO DISTRESS NOTED.
[2019-08-14] VITALS (27 sets, daily range): BP systolic 80–178; BP diastolic 44–89
--- NOTE | 2019-08-14 00:34 | NUR ---
Left message with Dr. Burrell's answering service regarding high blood pressure 178/67 and to update MD on pt status. Awaiting return call.
[2019-08-14] MEDS: ALBUTEROL/IPRATROPIUM 3 ML NEB NEB SCH ×4 (01:00→19:15)
--- NOTE | 2019-08-14 02:49 | NUR ---
Dr. Burrell returned call. Notified Dr. Burrell of high BP, CXR results, that IR said it was unnecessary to do chest tube at this time d/t decrease in pneumothorax. Orders received for PRN clonidine.
[2019-08-14] MEDS ORDERED: CLONIDINE HCL 0.1 MG TAB PO PRN (03:00)
--- NOTE | 2019-08-14 04:32 | Diagnostic Imaging Report ---
ADDENDUM #1 Addendum: The second item in the Impression should read as follows: 2. No significant interval change in previously visualized small LEFT apical pneumothorax. Mild atelectatic changes in the right lower lobe. Signed by: Dr. Roland Du M.D. on 08/14/2019 4:39 AM ORIGINAL REPORT Examination: Single AP view of the chest. COMPARISON: Portable chest 08/13/2019 INDICATION: Pneumothorax status post chest tube removal IMPRESSION: 1. Lines and Tubes: None 2. No significant interval change in previously visualized small right apical pneumothorax. Mild atelectatic changes in the right lower lobe. 3. Cardiomediastinal silhouette is normal. Pulmonary vasculature is normal. 4. No acute bony abnormalities. Extensive subcutaneous air is again noted in the left hemithorax. Signed by: Dr. Roland Du M.D. on 08/14/2019 4:29 AM
[2019-08-14 05:06] LABS: EOSINOPHILS # (AUTO) 0.1 (0.0-0.4); EOSINOPHILS % 0.5 % (0.0-6.0); HEMATOCRIT 39.7 % (38.2-49.6); HEMOGLOBIN 13.1 g/dL (14.0-18.0); LYMPHOCYTES # (AUTO) 1.3 (1.0-3.2); LYMPHOCYTES % 11.8 % (18.0-39.1); MEAN CORPUSCULAR HEMOGLOBIN 31.5 pg (28-32); MEAN CORPUSCULAR VOLUME 95.4 fL (81-99); MONOCYTES # (AUTO) 0.5 (0.2-0.8); NEUTROPHILS # (AUTO) 9.3 (2.1-6.9); NEUTROPHILS % 83.4 % (38.7-80.0); PLATELET COUNT 210 x10e3/uL (140-360); RED BLOOD COUNT 4.16 x10e6/uL (4.3-5.7); RED CELL DISTRIBUTION WIDTH 13.2 % (11.7-14.4)
[2019-08-14 05:31] LABS: ALANINE AMINOTRANSFERASE 17 IU/L (0-55); ALBUMIN 2.8 g/dL (3.5-5.0); ALBUMIN/GLOBULIN RATIO 0.9 (0.8-2.0); ALKALINE PHOSPHATASE 134 IU/L (40-150); ANION GAP 12.5 mmol/L (8-16); BLOOD UREA NITROGEN 11 mg/dL (7-26); BUN/CREATININE RATIO 12 (6-25); CARBON DIOXIDE 28 mmol/L (22-29); CHLORIDE 101 mmol/L (98-107); CREATININE, SERUM 0.92 mg/dL (0.72-1.25); EST GLOMERULAR FILTRATION RATE > 60 ML/MIN (60-); GLUCOSE 107 mg/dL (74-118); POTASSIUM 3.5 mmol/L (3.5-5.1); SODIUM 138 mmol/L (136-145)
[2019-08-14] MEDS: INSULIN LISPRO 100 UNIT/1 ML 3ML VIAL SQ SCH ×4 (07:10→20:00)
[2019-08-14] MEDS: BUDESONIDE/FORMOTEROL 160/4.5MCG INHALER INH SCH ×2 (07:30→19:30)
[2019-08-14] MEDS: PANTOPRAZOLE SOD 40 MG TABEC PO SCH (07:30)
[2019-08-14] MEDS: CARVEDILOL 12.5 MG TAB PO SCH ×2 (09:42→17:00)
[2019-08-14] MEDS: APIXABAN 5 MG TABLET PO SCH ×2 (09:42→16:29)
[2019-08-14] MEDS: NIFEDIPINE CR 30 MG TAB PO SCH (09:42)
[2019-08-14] MEDS: LOSARTAN POTASSIUM 100 MG TAB PO SCH (09:42)
--- NOTE | 2019-08-14 12:30 | Diagnostic Imaging Report ---
Examination: Single AP view of the chest. COMPARISON: 08/14/2019 at 0401 hours INDICATION: Pneumothorax DISCUSSION: See impression IMPRESSION: 1. Stable appearance of previously described small left apical pneumothorax when accounting for differences in patient positioning. Right lung remains clear with minimal atelectatic changes in the base. 2. Tortuous thoracic aorta with aneurysmal dilatation at the thoracoabdominal junction and normal heart size. No pulmonary edema. 3. Extensive subcutaneous emphysema along the left chest wall. Signed by: Dr. Galen Fernandez M.D. on 08/14/2019 12:26 PM
--- NOTE | 2019-08-14 13:08 | NUR ---
unable to weight patient. no bed scale Addendum: 08/14/19 at 1308 by Tracey Olson RN Amended: Links added.
--- NOTE | 2019-08-14 15:23 | NUR ---
Nutrition Screen Note RD Recommendation for Physician: 1.Continue with current diet as ordered Plan of Care: Patient has been screened and assessed for nutrition risk. At this time, the patient does not pose any nutrition risk. No further nutrition intervention is warranted at this time. Will re-evaluate if consulted by medical staff. Nutrition reason for involvement: LOS Primary Diagnose(s): COPD, Lung cancer, pulmonary embolism PMH: COPD, CAD, DM2 Ht: 58in Wt: 170lbs BMI: 25.84kg/m2 IBW: 154lbs +/- 10% RD Assessment: (08/14) Chart reviewed. Labs and meds reviewed. 89 y/o M ICU patient length of stay-day 5. Patient daughter was at bedside during time of visit and assisted with patient food and nutrition related history. Per pt, appetite has been good both during hospital admission, and at home. Daughter reports good intake on current diet order and showed no nutrition related concerns. PTC showed 75-100% meal intake. Pt denied any difficulties with chewing/swallowing or any ongoing N/V/D/C. Weight has been mostly stable at 170 lbs, reported no alarming weight changes. Will continue to monitor and follow as needed. Current Diet: ADA Diet Malnutrition Evaluation (08/14) The patient does not meet criteria for a specified degree of malnutrition at this time. Will re-evaluate at follow-up as appropriate. Diet Education Needs Assessment: Diet education not indicated. Nutrition Care Level: LOW Signed: Jelena Rossi, MS, RDN, LD
--- NOTE | 2019-08-14 16:21 | NUR ---
irrigated quintanilla and blood tinged urine. notified dr higuera. order to decrease eliquis dose
--- NOTE | 2019-08-14 17:24 | Progress Note ---
DATE: Cardiology Progress Note SUBJECTIVE: The patient is without any complaints this morning. He states he feels okay, however, he continues to have a cough and occasionally is short of breath. Denies any chest pain. OBJECTIVE: VITAL SIGNS: Temperature 98.2, pulse 74, respiratory rate 26, blood pressure 122/47, oxygen saturation 97% on room air. GENERAL: Alert and oriented x1, resting in the chair, does not appear to be in any acute distress. LUNGS: Diminished breath sounds in posterior lower lobes with scattered crackles. No wheezing. No rhonchi. CARDIOVASCULAR: Regular rate and rhythm. No murmurs, no gallops. ABDOMEN: Soft, nontender. EXTREMITIES: Lower extremities, no edema. CARDIOVASCULAR MEDICATIONS: Nifedipine 30 mg p.o. daily, Eliquis 10 mg p.o. b.i.d., Coreg 25 p.o. b.i.d., atorvastatin 40 mg p.o. h.s., clonidine 0.1 mg q.6 hours p.r.n. LABORATORY DATA: WBC 11.16, hemoglobin 13.1, hematocrit 39.7, platelets 210. Sodium 138, potassium 3.5, BUN 11, creatinine 0.92, AST 23, ALT 17. Chest x-ray with stable appearance of the small left apical pneumothorax. Extensive subcutaneous emphysema along the left chest wall. TELEMETRY: Sinus rhythm with infrequent PVCs. IMPRESSION: 1. Bilateral pulmonary emboli. 2. Left upper lobe mass, likely malignancy. 3. Ascending aorta, thoracic aneurysm measuring 5.1 x 5.5 x 4.7 cm. 4. Abdominal aortic aneurysm, status post repair. 5. Coronary artery disease, status post percutaneous coronary intervention x3. 6. Aortic stenosis. 7. Carotid artery disease. 8. Hypertension. 9. Hyperlipidemia. 10. Diabetes mellitus. 11. History of cerebrovascular accident. RECOMMENDATIONS: Continue with apixaban 10 mg p.o. b.i.d. for one week, then we will plan to transition to 5 mg p.o. b.i.d. thereafter. Continue to monitor blood pressure closely. At this time, we will hold off on the CT of the neck, given the reporting that the patient will like to be discharged home on hospice at this point. We will hold off on any invasive studies and only continue medical management at this time. Dictated by Lidia Johnson NP MD DORA Montoya/CALI /[id number]
--- NOTE | 2019-08-14 18:30 | NUR ---
patient ambulated to bathroom with walker and minimum assistance. sat up in chair for several hours, ambulated with PT then ambulated again down the [facility] from ICU to MS1 and back. tolerated well. VSS
[2019-08-14] MEDS ORDERED: SODIUM CHLORIDE 0.9% 1000ML 1,000 ML ONE (19:58)
[2019-08-14] MEDS ORDERED: SODIUM CHLORIDE 0.9% 1000ML 1,000 ML IV ONE (20:00)
[2019-08-14] MEDS: ATORVASTATIN 20 MG TAB PO SCH (20:00)
--- NOTE | 2019-08-14 22:15 | NUR ---
REPORT TAKEN FROM CLAUDY GAN.
--- NOTE | 2019-08-14 22:35 | NUR ---
RECEIVED TO ROOM #103 IN A WHEELCHAIR.
--- NOTE | 2019-08-14 23:29 | NUR ---
Assessment done.no resp.distress.no pain voiced.on room air.blood tinged urine draining through quintanilla.iv is leaking.iv cannula removed and applied pressure dressing. new iv started to left for arm#20g.patent.tele #6 showing sr.bed alarm on.bed locked and in lowest position.phone and call light within reach.instructed to call for assistance as needed.skin tear noted to left hand and healing scabs noted to bilateral elbows.
[2019-08-15] VITALS (7 sets, daily range): BP systolic 93–130; BP diastolic 51–61
[2019-08-15] MEDS: ALBUTEROL/IPRATROPIUM 3 ML NEB NEB SCH ×4 (00:05→19:00)
[2019-08-15 05:48] LABS: BASOPHILS % 0.1 % (0.0-1.0); EOSINOPHILS # (AUTO) 0.2 (0.0-0.4); EOSINOPHILS % 2.3 % (0.0-6.0); HEMATOCRIT 35.9 % (38.2-49.6); HEMOGLOBIN 11.9 g/dL (14.0-18.0); LYMPHOCYTES # (AUTO) 1.6 (1.0-3.2); LYMPHOCYTES % 20.1 % (18.0-39.1); MEAN CORPUSCULAR HEMOGLOBIN 31.6 pg (28-32); MEAN CORPUSCULAR HGB CONC 33.1 g/dL (31-35); MEAN CORPUSCULAR VOLUME 95.5 fL (81-99); MONOCYTES # (AUTO) 0.3 (0.2-0.8); MONOCYTES % 4.3 % (4.4-11.3); NEUTROPHILS # (AUTO) 5.8 (2.1-6.9); NEUTROPHILS % 72.9 % (38.7-80.0); PLATELET COUNT 200 x10e3/uL (140-360); RED BLOOD COUNT 3.76 x10e6/uL (4.3-5.7); RED CELL DISTRIBUTION WIDTH 13.4 % (11.7-14.4)
[2019-08-15 06:31] LABS: ANION GAP 12.5 mmol/L (8-16); BLOOD UREA NITROGEN 17 mg/dL (7-26); BUN/CREATININE RATIO 19 (6-25); CALCIUM 8.9 mg/dL (8.4-10.2); CARBON DIOXIDE 27 mmol/L (22-29); CHLORIDE 102 mmol/L (98-107); CREATININE, SERUM 0.91 mg/dL (0.72-1.25); EST GLOMERULAR FILTRATION RATE > 60 ML/MIN (60-); GLUCOSE 112 mg/dL (74-118); MAGNESIUM 1.9 MG/DL (1.3-2.1); POTASSIUM 3.5 mmol/L (3.5-5.1); SODIUM 138 mmol/L (136-145)
--- NOTE | 2019-08-15 06:49 | Diagnostic Imaging Report ---
Examination: Single AP view of the chest. COMPARISON: Portable chest 08/14/2019 INDICATION: Pneumothorax IMPRESSION: 1. Lines and Tubes: None 2. Lungs are well-inflated. No interval change in small left apical pneumothorax. Minimal bilateral lower lobe atelectatic changes. 3. Cardiomediastinal silhouette is normal. Pulmonary vasculature is normal. 4. No acute bony abnormalities. Extensive subcutaneous emphysema is again seen. Signed by: Dr. Roland Du M.D. on 08/15/2019 6:45 AM
--- NOTE | 2019-08-15 07:10 | NUR ---
BED SIDE SHIFT REPORT GIVEN TO THE ONCOMING RN.STABLE CONDITION.
[2019-08-15] MEDS: INSULIN LISPRO 100 UNIT/1 ML 3ML VIAL SQ SCH ×4 (07:30→21:34)
[2019-08-15] MEDS: BUDESONIDE/FORMOTEROL 160/4.5MCG INHALER INH SCH ×2 (07:58→19:15)
[2019-08-15] MEDS: PANTOPRAZOLE SOD 40 MG TABEC PO SCH (08:32)
[2019-08-15] MEDS: CARVEDILOL 12.5 MG TAB PO SCH ×2 (08:32→16:46)
[2019-08-15] MEDS: NIFEDIPINE CR 30 MG TAB PO SCH (08:44)
[2019-08-15] MEDS: APIXABAN 5 MG TABLET PO SCH ×2 (08:44→16:47)
[2019-08-15] MEDS: LOSARTAN POTASSIUM 100 MG TAB PO SCH ×2 (08:44→12:39)
--- NOTE | 2019-08-15 12:54 | Progress Note ---
DATE: Cardiology Progress Note SUBJECTIVE: The patient is without any new complaints. He does endorse some shortness of breath especially when he is walking, but denies any chest pain or palpitations. OBJECTIVE: VITAL SIGNS: Temperature 97.5, pulse 74, oxygen saturation 95% on room air, blood pressure 123/58, and respiratory rate 18. GENERAL: Alert and oriented x2, resting comfortably in bed. Does not appear to be in any acute distress. Daughter at the bedside. Appears to be forgetful. NECK: Supple. No JVD noted. LUNGS: Diminished breath sounds in posterior lower lobes with scattered crackles. No wheezing. No rhonchi. CARDIOVASCULAR: Regular rate and rhythm. No murmurs. No gallops. ABDOMEN: Soft and nontender. EXTREMITIES: Lower extremity, no edema. CARDIOVASCULAR MEDICATIONS: Eliquis 5 mg p.o. b.i.d., nifedipine 30 mg p.o. daily, Coreg 25 p.o. b.i.d., atorvastatin 40 mg p.o. at bedtime, losartan 100 mg p.o. daily, and clonidine 0.1 mg p.r.n. for hypertension. LABORATORY DATA: WBC 7.90, hemoglobin 11.9, hematocrit 35.9, and platelet 200. Sodium 138, potassium 3.5, BUN 17, creatinine 0.91, and glucose 112. Chest x-ray from today with lungs well inflated. No interval change in the small left apical pneumothorax. Minimal bilateral lobe atelectasis. Extensive subcutaneous emphysema is noted again. TELEMETRY: Sinus rhythm. IMPRESSION: 1. Bilateral pulmonary embolism. 2. Left upper lobe mass, likely malignancy. 3. Ascending aorta aneurysm, measuring 5.1 x 5.5 x 4.7 cm. 4. Abdominal aortic aneurysm, status post repair. 5. Coronary artery disease, status post percutaneous intervention 3 times. 6. Aortic stenosis. 7. Carotid artery disease. 8. Hypertension. 9. Hyperlipidemia. 10. Diabetes mellitus. 11. History of cerebrovascular accident. RECOMMENDATIONS: Continue with the above-listed medication. The patient is to continue with Apixaban 5 mg twice a day. Continue to monitor blood pressure very closely. At this time, we will hold off on the CT of the neck given that the patient and the family are still deciding on possible palliative care as part of the discharge. They would like to hold off on any invasive studies at this time until they get the results of the lungs biopsy. We will to continue to support as needed. Dictated by Lidia Johsnon, [address] [employer] MD PETE MontoyaV/MODL /[id number]
[2019-08-15 16:10] LABS: CLARITY,URINE CLOUDY (CLEAR); COLOR,URINE YELLOW (YELLOW)
[2019-08-15 16:12] LABS: LEUKOCYTE ESTERASE ,URINE NEGATIVE (NEGATIVE); NITRITE,URINE NEGATIVE (NEGATIVE); PROTEIN,URINE DIPSTICK 1+ (NEGATIVE)
[2019-08-15 16:13] LABS: KETONES,URINE NEGATIVE (NEGATIVE)
[2019-08-15 16:14] LABS: BACTERIA,URINE RARE /HPF; BILIRUBIN,URINE NEGATIVE (NEGATIVE); EPITHELIAL CELLS,URINE FEW /LPF; RBC,URINE 0-5 /HPF (0-5); URINE UROBILINOGEN 0.2 mg/dL (0.2 - 1); WBC,URINE (MAN) 0-5 /HPF (0-5)
[2019-08-15] MEDS: ATORVASTATIN 20 MG TAB PO SCH (21:33)
--- NOTE | 2019-08-15 22:10 | NUR ---
Assessment done.no resp.distress.no pain voiced.quintanilla care given.assisted to ambulates with walker.patient is back to bed safely.bed locked and in lowest position.phone and call light within reach.instructed to call for assistance as needed.
[2019-08-16 00:43] VITALS: BP 105/51
[2019-08-16 04:00] VITALS: BP 137/63
[2019-08-16 06:32] LABS: BASOPHILS % 0.3 % (0.0-1.0); EOSINOPHILS # (AUTO) 0.2 (0.0-0.4); EOSINOPHILS % 3.3 % (0.0-6.0); HEMOGLOBIN 12.1 g/dL (14.0-18.0); LYMPHOCYTES # (AUTO) 1.5 (1.0-3.2); LYMPHOCYTES % 23.1 % (18.0-39.1); MEAN CORPUSCULAR HGB CONC 32.7 g/dL (31-35); MEAN CORPUSCULAR VOLUME 94.9 fL (81-99); MONOCYTES # (AUTO) 0.4 (0.2-0.8); MONOCYTES % 6.2 % (4.4-11.3); NEUTROPHILS # (AUTO) 4.3 (2.1-6.9); NEUTROPHILS % 66.8 % (38.7-80.0); PLATELET COUNT 211 x10e3/uL (140-360); RED CELL DISTRIBUTION WIDTH 13.4 % (11.7-14.4)
[2019-08-16 06:56] LABS: ALANINE AMINOTRANSFERASE 15 IU/L (0-55); ALBUMIN 2.7 g/dL (3.5-5.0); ALKALINE PHOSPHATASE 130 IU/L (40-150); ANION GAP 12.3 mmol/L (8-16); BLOOD UREA NITROGEN 14 mg/dL (7-26); BUN/CREATININE RATIO 16 (6-25); CALCIUM 8.6 mg/dL (8.4-10.2); CARBON DIOXIDE 28 mmol/L (22-29); CHLORIDE 103 mmol/L (98-107); EST GLOMERULAR FILTRATION RATE > 60 ML/MIN (60-); GLUCOSE 115 mg/dL (74-118); POTASSIUM 3.3 mmol/L (3.5-5.1); SODIUM 140 mmol/L (136-145)
[2019-08-16] MEDS: ALBUTEROL/IPRATROPIUM 3 ML NEB NEB SCH ×2 (06:56)
--- NOTE | 2019-08-16 07:01 | Diagnostic Imaging Report ---
Examination: Single AP view of the chest. COMPARISON: AP chest 08/15/2019 INDICATION: Pneumothorax IMPRESSION: 1. Lines and Tubes: None 2. No significant interval change in small left apical pneumothorax. Improved right basilar atelectatic changes. 3. Cardiomediastinal silhouette is normal. Pulmonary vasculature is normal. 4. No acute bony abnormalities. Signed by: Dr. Roland Du M.D. on 08/16/2019 6:58 AM
[2019-08-16] MEDS: BUDESONIDE/FORMOTEROL 160/4.5MCG INHALER INH SCH (07:08)
--- NOTE | 2019-08-16 07:18 | NUR ---
BED SIDE SHIFT REPORT GIVEN TO THE ONCOMING RN.STABLE CONDITION.
[2019-08-16] MEDS: INSULIN LISPRO 100 UNIT/1 ML 3ML VIAL SQ SCH ×2 (07:30→12:39)
[2019-08-16] MEDS ORDERED: POTASSIUM CHLORIDE 20 MEQ TAB CR PO ONE (08:30)
[2019-08-16] MEDS: PANTOPRAZOLE SOD 40 MG TABEC PO SCH (08:32)
[2019-08-16] MEDS: NIFEDIPINE CR 30 MG TAB PO SCH (08:32)
[2019-08-16] MEDS: CARVEDILOL 12.5 MG TAB PO SCH (08:32)
[2019-08-16] MEDS: APIXABAN 5 MG TABLET PO SCH (08:32)
[2019-08-16] MEDS: LOSARTAN POTASSIUM 100 MG TAB PO SCH (08:32)
[2019-08-16 08:34] VITALS: BP 138/63
--- NOTE | 2019-08-16 08:54 | NUR ---
Removed Mg catheter as ordered. Patient tolerated well
[2019-08-16] MEDS ORDERED: elequis PO (09:53)
[2019-08-16] MEDS ORDERED: LIPITOR20 MG PO (09:59)
[2019-08-16] MEDS ORDERED: COREG12.5 MG PO (09:59)
[2019-08-16] MEDS ORDERED: LOSARTAN POTAS100 MG PO (10:00)
[2019-08-16] MEDS ORDERED: SYMBICORT 16010.2 GM INH (10:01)
[2019-08-16] MEDS ORDERED: PROAIR HFA INH8.5 GM INH (10:01)
[2019-08-16] MEDS ORDERED: DOCUSATE SODIUM 100 MG CAP PO ONE (10:15)
--- NOTE | 2019-08-16 10:34 | NUR ---
Patient states " I have not had a BM in a couple of days." aware. Orders for colace received. Notified Yaz, patient's daughter of discharge orders. Voiced understanding.
[2019-08-16 11:09] VITALS: BP 138/63
--- NOTE | 2019-08-16 11:50 | NUR ---
Patient voided 350ml clear yellow urine without discomfort. Bladder done. 0ml noted. Notified lou , patient's daughter, of discharge. Patient's daughter states, "We will be there in two hours."
--- NOTE | 2019-08-16 12:18 | NUR ---
ORDERS REC'D FOR [facility] TODAY FROM DR VIRGEN PT AGREEABLE GIVEN 3 CHOICES ON CHOICE LETTER AND HE CHOSE [facility] LETTER ON CHART AND COPY GIVEN TO PT IMM EXPLAINED TO PT, SIGNED BY PT AND PLACED ON CHART COPY TO PT IN CARE TRANSITIONS FOLDER
--- NOTE | 2019-08-16 12:21 | NUR ---
HOME HEALTH DISCHARGE NOTE PATIENT ADDRESS WHERE SRVICE WILL BE RECEIVED: [address] [place] [id number] PATIENT CONTACT NUMBER [phone] (MARK) NAME OF [facility]: [facility] [employer] TELEPHONE/FAX NUMBER OF COMPANY: [phone] ADDRESS OF COMPANY: [address] [place] [id number] SERVICES TO RECEIVE: [facility] [employer]ATED DATE SERVICES WILL BEGING FRIDAY 08/17 PLEASE CALL THE COMPANY [facility] IF YOU HAVE NOT RECEIVED A CALL TO SCHEDULE A HOME VISIT WITHING 24 HRS OF DISCHARGE
--- NOTE | 2019-08-16 13:05 | NUR ---
Left FA IV discontinued. No signs of infiltration noted. 2x2 gauze and tape placed. Taken via wheelchair to personal car by Sae LOCO. Accompanied by Maty, daughter. AAOX3 to time, person, place. Respirations even and unlabored. Denies pain. Discharge instructions, rx, and all personal belongings taken with patient.
--- NOTE | 2019-08-20 03:58 | Pulmonary Function Test ---
DATE OF STUDY: 08/10/2019 REFERRING PHYSICIAN: NAME OF STUDY: Spirometry Report. Patient of Dr. Diaz. INDICATIONS: Very severe obstructive pulmonary disease. FINDINGS: Forced vital capacity 1.27 L, 39% of predicted; FEV1 of 0.62 L, 28%; FEV1/FVC ratio 49%, FEF 25-75 of 18%. However, there was significant improvement following inhalation of bronchodilators, 31% in FVC to 1.66 L and 29% in FEV1 to 0.8 L, 36% of predicted. CONCLUSIONS: Significant reversibility, but very severe obstructive pulmonary disease. Poor candidate for thoracic surgery. Galen Burrell MD DS/MODL /[id number]
== END 2019-08-16 13:05 | disposition home or self-care (01) | DRG 176 ==
LOC: ER 16:10 → ERHOLD 20:59 → MED/SURG3 23:53 → ICU 08-13 23:05 → MED/SURG 08-14 22:35
PROVIDERS: ADMIT Internal Medicine; ATTEND Internal Medicine
PROC: 0W9B30Z Drainage of Left Pleural Cavity with Drainage Device, Percutaneous Approach (ICD-10-PCS; principal; 2019-08-12)
PROC: 0BBG3ZX Excision of Left Upper Lung Lobe, Percutaneous Approach, Diagnostic (ICD-10-PCS; 2019-08-12)
DX: I26.99 Other pulmonary embolism without acute cor pulmonale (principal); J93.9 Pneumothorax, unspecified; R91.8 Other nonspecific abnormal finding of lung field; I71.2 Thoracic aortic aneurysm, without rupture; I25.10 Atherosclerotic heart disease of native coronary artery without angina pectoris; I10 Essential (primary) hypertension; E11.8 Type 2 diabetes mellitus with unspecified complications; I35.0 Nonrheumatic aortic (valve) stenosis
CPT/HCPCS: 10009; 32405; 32557; 36415; 70450; 71045; 71046; 71260; 74470; 77012; 80048; 80053; 80061; 81001; 82550; 82553; 82948; 83735; 84484; 85025; 85610; 85730; 87086; 88172; 88305; 88342; 93005; 93306; 93880; 93970; 94060; 94640; 94664; 96372; 97139; 99284; C1769; J1650; J2001; J2060; J2250; J2270; J3010; J7030; J7050; Q9967